=== PATIENT | male | born 1950 | race Caucasian/White ===

== ENCOUNTER → 2017-07-16 | Outpatient (CLI) | payer MEDICARE, OTHER ==
--- NOTE | 2017-07-17 14:58 | RADIOLOGY REPORT (SQ) ---
EXAM DESCRIPTION: MRI ABDOMEN COMBO COMPLETED DATE/TIME: 07/16/2017 12:04 pm REASON FOR STUDY: LIVER MASS RIGHT LOBE R16.0 HEPATOMEGALY, NOT ELSEWHERE CLASSIFIED COMPARISON: None. Correlation: CT 06/15/2017. TECHNIQUE: Multiplanar multisequence imaging performed without and with contrast including sagittal, axial and coronal T2, axial T1, axial gradient fat sat T1, axial, sagittal and coronal fat sat T1 po st contrast. CONTRAST TYPE AND DOSE: 20 mL Prohance. RENAL FUNCTION: GFR > 60. LIMITATIONS: Motion. FINDINGS: LIVER: Well-circumscribed lesion segment 7 measuring about 18 mm in diameter which is hete rogeneously bright on T2 and demonstrates progressive enhancement. Not completely typical MRI appear ance but most likely a benign hemangioma. Additional less than 5 mm high T2 signal lesions too small to characterize but likely benign cysts. SPLEEN: Normal size. 3 cm benign cyst. PANCREAS: No masses. No adjacent inflammation or peripancreatic fluid collections. Pancreatic duct no t dilated. GALLBLADDER: No masses. No stones. No gallbladder wall thickening or pericholecystic fluid. ADRENAL GLANDS: No significant masses or asymmetry. RIGHT KIDNEY AND URETER: Small cortical cyst. No hydronephrosis. LEFT KIDNEY AND URETER: Parapelvic cysts. No solid masses or hydronephrosis. AORTA AND VESSELS: No aneurysm. RETROPERITONEUM: No retroperitoneal adenopathy, hemorrhage or masses. BOWEL: No visualized masses. No inflammation. No significant dilatation. ABDOMINAL WALL AND PERITONEUM: No hernias. No free fluid. BONES: No acute or significant findings. OTHER: No other significant finding. IMPRESSION: Probable benign hemangioma in the liver. 6 to 12 month MRI follow up is recommended to assess stability. TECHNICAL DOCUMENTATION: JOB ID: [id number] [employer]- All Rights Reserved Reading location - IP/workstation name: [email or web address]
== END ==
LOC: RAD 10:38
PROVIDERS: ATTEND Internal Medicine
DX: R16.0 Hepatomegaly, not elsewhere classified (principal)
CPT/HCPCS: 82565; 74183; A9576

== ENCOUNTER → 2018-02-07 | Outpatient (CLI) | payer MEDICARE, OTHER ==
[~2018-02-07] MED LIST: FUROSEMIDE INJ/PF 40 MG/4 ML SDV ONE
--- NOTE | 2018-02-07 15:45 | RADIOLOGY REPORT (SQ) ---
EXAM DESCRIPTION: NM RENAL WITH LASIX COMPLETED DATE/TIME: 02/07/2018 2:52 pm REASON FOR STUDY: HYDRONEPHROSIS (N13.30) N13.30 UNSPECIFIED HYDRONEPHROSIS COMPARISON: Abdominal ultrasound 08/17/2012 MRI abdomen 07/16/2017 RADIONUCLIDE AND DOSE: 5.5 millicuries Tc-99m MAG 3 The route of agent administration: Intravenous ADDITIONAL DRUGS AND DOSES: Lasix 20 mg. TECHNIQUE: Following administration of the radionuclide, flow images of the kidneys were acquired fo llowed by sequential imaging for 30 minutes. Intravenous Lasix was given at the midpoint of the study . Time activity curves were generated. LIMITATIONS: None. FINDINGS: ACTIVITY LEFT KIDNEY: 58 %. ACTIVITY RIGHT KIDNEY: 42 %. Blood flow to both kidneys is symmetrical. The right kidney time activity curve is normal, with peak maximal activity 3.4 minutes [address]out af ter Lasix with a T1/2 max of 7.8 minutes. On the left side, there is accumulation of activity in dilated renal pelvis and calices, with time to peak maximal activity 6.9 minutes. After Lasix, washout with T1/2 max of 24 minutes. The washout c urve slope is similar to the right side, suggesting against significant urinary outflow obstruction IMPRESSION: NORMAL RIGHT LASIX RENOGRAM. ON THE LEFT SIDE, THERE IS A DILATED RENAL PELVIS AND CALICES. HOWEVER, GOOD WASHOUT AFTER LASIX OCC URS SUGGESTING AGAINST CURRENT URINARY OUTFLOW OBSTRUCTION. TECHNICAL DOCUMENTATION: JOB ID: [id number] [employer]- All Rights Reserved Reading location - IP/workstation name: [email or web address]
== END ==
LOC: RAD 13:34
PROVIDERS: ATTEND Urology
DX: N13.30 Unspecified hydronephrosis (principal)
CPT/HCPCS: 78708; A9562; J1940

== ENCOUNTER 2019-08-19 11:35 | Emergency (ER) | payer MEDICARE, OTHER ==
[2019-08-19 12:02] LABS: ABSOLUTE LYMPHOCYTES (AUTO) 0.8 10^3/uL (0.5-4.7); ABSOLUTE MONOCYTES (AUTO) 0.5 10^3/uL (0.1-1.4); ABSOLUTE NEUT (AUTO) 4.3 10^3/uL (1.7-8.2); BASOPHILS % (AUTO) 0.3 % (0-2); EOSINOPHILS % (AUTO) 0.6 % (0-6); HEMATOCRIT 46.4 % (37.9-51.0); HEMOGLOBIN 15.9 g/dL (13.5-17.0); LYMPHOCYTES % (AUTO) 14.2 % (13-45); MEAN CORPUSCULAR HEMOGLOBIN 30.6 pg (27.0-33.4); MEAN CORPUSCULAR HGB CONC 34.4 g/dL (32.0-36.0); MEAN CORPUSCULAR VOLUME 89 fl (80-97); MONOCYTES % (AUTO) 8.4 % (3-13); PLATELET COUNT 206 10^3/uL (150-450); RED BLOOD COUNT 5.21 10^6/uL (4.35-5.55); RED CELL DISTRIBUTION WIDTH 13.6 % (11.5-14.0); SEGMENTED NEUTROPHILS % (AUTO) 76.5 % (42-78); TOTAL CELLS COUNTED % (AUTO) 100 %; WHITE BLOOD COUNT 5.7 10^3/uL (4.0-10.5)
[2019-08-19 12:11] LABS: APPEARANCE,URINE SLIGHTLY-CLOUDY; BILIRUBIN,URINE NEGATIVE (NEGATIVE); COLOR,URINE AMBER; GLUCOSE, URINE NEGATIVE (NEGATIVE); KETONES,URINE NEGATIVE (NEGATIVE); LEUKOCYTE ESTERASE,URINE NEGATIVE (NEGATIVE); NITRITE,URINE NEGATIVE (NEGATIVE); PROTEIN,URINE 100 mg/dL (NEGATIVE); URINE SPECIFIC GRAVITY 1.025
[2019-08-19] MEDS ORDERED: BENZONATATE 100 MG CAPSULE PO ONE (12:19)
[2019-08-19] MEDS ORDERED: ACETAMINOPHEN 325 MG TABLET PO ONE (12:19)
[2019-08-19] MEDS ORDERED: HYDROCODONE/ACETAMINOPHEN 5-325 MG TABLET PO ONE (12:19)
--- NOTE | 2019-08-19 12:19 | RADIOLOGY REPORT (SQ) ---
EXAM DESCRIPTION: CHEST SINGLE VIEW IMAGES COMPLETED DATE/TIME: 08/19/2019 12:08 pm REASON FOR STUDY: SOB COMPARISON: Chest x-ray 02/27/2015, 02/19/2015 EXAM PARAMETERS: NUMBER OF VIEWS: One view. TECHNIQUE: Single frontal radiographic view of the chest acquired. RADIATION DOSE: NA LIMITATIONS: The patient is in a lordotic position. FINDINGS: LUNGS AND PLEURA: No consolidation, pleural effusion or pneumothorax. MEDIASTINUM AND HILAR STRUCTURES: No masses. Contour normal. HEART AND VASCULAR STRUCTURES: Heart normal in size. Normal vasculature. BONES: Multilevel degenerative changes at the spine. HARDWARE: None in the chest. IMPRESSION: NO ACUTE RADIOGRAPHIC FINDING IN THE CHEST. TECHNICAL DOCUMENTATION: JOB ID: [id number] [employer]- All Rights Reserved Reading location - IP/workstation name: [email or web address]
[2019-08-19 12:26] LABS: ALBUMIN 4.2 g/dL (3.5-5.0); ALKALINE PHOSPHATASE 72 U/L (38-126); ANION GAP 10 (5-19); ASPARTATE AMINO TRANSFERASE 35 U/L (17-59); BILIRUBIN,DIRECT 0.2 mg/dL (0.0-0.4); BILIRUBIN,TOTAL 1.6 mg/dL (0.2-1.3); BLOOD UREA NITROGEN 18 mg/dL (7-20); CARBON DIOXIDE 25 mmol/L (22-30); CHLORIDE 101 mmol/L (98-107); GLUCOSE 174 mg/dL (75-110); POTASSIUM 4.1 mmol/L (3.6-5.0); TOTAL PROTEIN 7.4 g/dL (6.3-8.2)
[2019-08-19] MEDS ORDERED: NORMAL SALINE 1000 ML 1,000 ML IV ONE (14:10)
[2019-08-19 14:52] VITALS: BP 129/64
--- NOTE | 2019-08-19 18:37 | EKG REPORT ---
SEVERITY:- ABNORMAL ECG - SINUS RHYTHM INFERIOR INFARCT, AGE INDETERMINATE : Confirmed by: Lani Cummins 19-Aug-2019 18:37:01
--- NOTE | 2019-08-21 13:43 | ER Document Report ---
Entered by KITTY KIRBY SCRIBE 08/19/19 1219 Acting as scribe for:HENRIQUE CAMACHO MD ED Respiratory Problem - General Chief Complaint: Shortness Of Breath Stated Complaint: SOB/COUGH/CONGESTION/FEVER Time Seen by Provider: 08/19/19 11:58 Primary Care Provider: AURA FISCHER MD [NO LOCAL MD] - Follow up as needed TRACIE BUCHANAN MD [Primary Care Provider] - Follow up as needed Information source: Patient Notes: This 68 year old male patient presents to the emergency department today with complaints of shortness of breath this morning. Patient reports a cough for the past x4-5 weeks and a productive cough with green sputum the past x2 weeks. Patient states his cough has not been productive today. Patient reports a fever of 103 F 2 nights ago, 102 F last night, he has been on Bactrim and 100 F this morning. Patient states he stayed in the hospital x2 weeks ago for possible kidney stones and has an appointment in x2 weeks for evaluation of bilateral tumors on his kidneys. He does have chronic hematuria at this time. For the past 6 days. Patient states his son developed bronchitis in the past week, and was put on antibiotics for this. He states when he gets bronchitis like this, he usually gets a shot in both hips and it goes away. TRAVEL OUTSIDE OF THE [place] IN LAST 30 DAYS: No - Related Data Allergies/Adverse Reactions: clopidogrel bisulfate [From Plavix] Allergy (Intermediate, Verified 03/05/15 09:33) XIOMY NAVA Mamrtoz-Kwv-Bwd Reductase Inhibitor Allergy (Intermediate, Verified 03/05/15 09:33) XIOMY NAVA Past Medical History - General Information source: Patient - Social History Smoking Status: Former Smoker Cigarette use (# per day): No Chew tobacco use (# tins/day): No Smoking Education Provided: No Frequency of alcohol use: Occasional Drug Abuse: None Lives with: Family Family History: Reviewed & Not Pertinent - Past Medical History Cardiac Medical History: Reports: Hx Heart Attack - x2 Pulmonary Medical History: Reports: Hx Pneumonia Renal/ Medical History: Reports: Hx Kidney Stones Malignancy Medical History: Reports Other - He is being evaluated for bilat renal masses thought to be renal cell ca GI Medical History: Reports: Hx Hiatal Hernia Musculoskeletal Medical History: Reports Hx Arthritis Past Surgical History: Reports: Hx Cardiac Surgery - CARDIAC CATH, x2 STENTS PLACED, Hx Kidney (Renal Surgery) - stent placed - Immunizations Hx Diphtheria, Pertussis, Tetanus Vaccination: Yes Review of Systems - Review of Systems Constitutional: See HPI, Fever EENT: No symptoms reported Cardiovascular: No symptoms reported Respiratory: See HPI, Cough, Short of breath, Sputum - green Gastrointestinal: No symptoms reported Genitourinary: No symptoms reported Male Genitourinary: No symptoms reported Musculoskeletal: No symptoms reported Skin: No symptoms reported Hematologic/Lymphatic: No symptoms reported Neurological/Psychological: No symptoms reported -: Yes All other systems reviewed and negative Physical Exam - Vital signs Vitals: Temp 98.7 F 08/19/19 11:36 - General General appearance: Appears well, Alert - HEENT Head: Normocephalic, Atraumatic Eyes: Normal Pupils: PERRL - Respiratory Respiratory status: No respiratory distress Chest status: Nontender Breath sounds: Rales, Rhonchi, Wheezing Chest palpation: Normal - Cardiovascular Rhythm: Tachycardia Heart sounds: Normal auscultation Murmur: No - Abdominal Inspection: Normal Distension: No distension Bowel sounds: Normal Tenderness: Nontender - Extremities General upper extremity: Normal inspection. No: Edema General lower extremity: Normal inspection. No: Edema - Neurological Neuro grossly intact: Yes Cognition: Normal Orientation: AAOx4 Speech: Normal - Psychological Associated symptoms: Normal affect, Normal mood - Skin Skin Temperature: Warm Skin Moisture: Dry Skin Color: Normal Course - Re-evaluation Re-evalutation: 08/19/19 14:10 The patient is no longer shivering. He is actually sweating profusely and complaining of burning up. He did receive Tylenol so I would suspect that his fever is breaking. His BUN was 25, his urine was a little concentrated, so he will receive some IV fluid hydration. Chest x-ray does not show infiltrates, white blood cell count does not suggest bacterial infection. He will need COVID testing when he is discharged due to his fevers, coughing, clear chest x-ray and viral pattern on his CBC. - Vital Signs Vital signs: Temp Pulse Resp BP Pulse Ox 99.0 F 18 129/64 H 96 08/19/19 14:51 08/19/19 14:01 08/19/19 14:00 08/19/19 14:01 - Laboratory Result Diagrams: 08/19/19 11:46 08/19/19 11:46 Laboratory results interpreted by me: 08/19/19 08/19/19 11:46 11:46 Sodium 136.4 L Glucose 174 H Total Bilirubin 1.6 H Urine Protein 100 H Urine Blood MODERATE H Urine Urobilinogen 2.0 H - Diagnostic Test Radiology reviewed: Image reviewed, Reports reviewed - Chest x-ray does not show acute cardiopulmonary abnormalities. Discharge - Discharge Clinical Impression: Bronchitis Fever Qualifiers: Fever type: unspecified Qualified Code(s): R50.9 - Fever, unspecified Condition: Stable Disposition: HOME, SELF-CARE Additional Instructions: Bronchitis: You have acute bronchitis. This disease is an infection or inflammation of the air passageways in your lungs. Symptoms usually include cough, low grade fever, shortness of breath, and wheezing. The cough usually persists for a couple of weeks. Most cases of bronchitis get better without antibiotics. We prescribe antibiotics when we believe bacteria are damaging your airways, or if there's high risk the bronchitis will worsen into pneumonia. Increase your fluid intake. A cool mist humidifier may make your lungs more comfortable. An expectorant (cough medicine that loosens phlegm) can help. If you smoke, STOP!!! Recovery from bronchitis can be somewhat slow, but you should see improvement within a day or two. Repeated episodes of bronchitis may result in lung damage -- for example, chronic bronchitis, recurrent pneumonias, or emphysema. Call the doctor if you develop increasing fever, shortness of breath, chest pain, bloody sputum, or otherwise worsen. If you have not improved at all after several days, contact the physician. Take your Vicodin you have at home to help control your cough. Take the Tessalon Perles as prescribed to help control cough. Add Delsym DM for additional cough suppression. Drink plenty of fluids and get plenty of rest. Take Tylenol every 4 hours to keep your fever from spiking. Follow-up with your primary care provider next week if your symptoms have not started improving. RETURN TO THE EMERGENCY ROOM IF ANY NEW OR WORSENING SYMPTOMS. Your were COVID-19 tested, and should take isolation precautions until results come back. Prescriptions: Benzonatate [Tessalon Perles 100 mg Capsule] 100 mg PO ASDIR PRN #30 capsule PRN Reason: Referrals: TRACIE BUCHANAN MD [Primary Care Provider] - Follow up as needed AURA FISCHER MD [NO LOCAL MD] - Follow up as needed I personally performed the services described in the documentation, reviewed and edited the documentation which was dictated to the scribe in my presence, and it accurately records my words and actions.
== END 2019-08-19 14:52 | disposition home or self-care (01) ==
LOC: ER 11:35
DX: U07.1 COVID-19 (principal); J40 Bronchitis, not specified as acute or chronic; R09.81 Nasal congestion; R50.9 Fever, unspecified; R06.02 Shortness of breath; R05 Cough; R09.89 Other specified symptoms and signs involving the circulatory and respiratory systems
CPT/HCPCS: 93005; 99284; 36415; 87040; 87070; 87205; 83605; 85025; 80053; 81001; 71045; 93010; U0003; A9270 ×3; C9803; 87635